=== PATIENT | male | born 2000 | race Two or more races ===

== ENCOUNTER 2020-03-20 21:20 | Emergency (ER) | payer BC, OTHER ==
[~2020-03-20] VITALS: Ht 180.3 cm; Wt 79.4 kg
[~2020-03-20 21:20] MED LIST: NKM
[2020-03-20 21:30] VITALS: BP 133/74
--- NOTE | 2020-03-20 21:30 | NUR ---
ED Nurse Note: Pt walked into ED from home for c/o R shoulder injury after falling off his skateboard prior to arrival. Pt reports pain in R shoulder mostly with movement, decreased ROM noted. Abrasion to R shoulder also seen. Pt is aaox4, breathing is normal and unlabored, NAD. Pt is ambulatory with steady gait.
--- NOTE | 2020-03-20 21:45 | Emergency Room Report ---
History of Present Illness General Chief Complaint: Upper Extremity Injury Source: Patient Present Illness HPI Patient is a 20-year-old male presents after increased right-sided shoulder pain. Patient reports having increased pain with movement. Denies any pain at rest. Reports having recent injury to his shoulder while skateboarding. He reports falling onto the right shoulder. He states he is right-hand dominant. Denies any other locations of injury. Denies any other symptoms other than pain with movement. Denies any fever. No prior medical history. Allergies: Coded Allergies: No Known Allergies (Unverified , 08/15/13) COVID-19 Screening Contact w/high risk pt: No Recent Travel to affected area: No Experienced COVID-19 symptoms?: No COVID-19 Testing performed COMPLAINT OPERATOR: No Patient History Reviewed Nursing Documentation: PMH: Agreed; PSxH: Agreed Nursing Documentation-PMH Past Medical History: No Stated History Review of Systems Constitutional: Reports: no symptoms Eye: Reports: no symptoms ENT: Reports: no symptoms Respiratory: Reports: no symptoms Gastrointestinal: Reports: no symptoms Genitourinary: Reports: no symptoms Skin: Reports: no symptoms Psychiatric: Reports: no symptoms Neurological: Reports: no symptoms Endocrine: Reports: no symptoms Hematologic/Lymphatic: Reports: no symptoms Allergic: Reports: no symptoms All Other Systems: negative except mentioned in HPI Physical Exam Vital Signs Date Time Temp Pulse Resp B/P (MAP) Pulse Ox O2 Delivery O2 Flow Rate FiO2 03/20/20 21:25 99.0 78 19 133/74 (93) 100 Room Air General Appearance: well appearing, no apparent distress, alert, GCS 15, non- toxic Head: normocephalic, atraumatic ENT: hearing grossly normal, normal voice Neck: full range of motion, supple Respiratory: no respiratory distress, speaking full sentences Cardiovascular #1: normal inspection, regular rate, rhythm Musculoskeletal: normal inspection, decreased range of mation Neurologic: alert, motor strength/tone normal, property and supply officer III-XII nml as tested, oriented x3, normal gait Psychiatric: normal inspection, mood/affect normal Skin: normal color, abrasions - Abrasion to the lateral aspect of the right shoulder Medical Decision Making Diagnostic Impression: Primary Impression: Shoulder contusion Additional Impression: Abrasion ER Course Patient presented for right shoulder pain. Differential diagnosis include was not limited to dislocation, contusion, rotator cuff tear, fracture, AC separation among others. X-ray imaging was ordered to patient's recent trauma. He does not appear to have any evidence of dislocation has painless resting with his right upper extremity. Has normal hand function. There is noted to be abrasion over the right deltoid. Patient does not have any step-offs or tenderness to the clavicle and AC joint is nontender. X-ray imaging showed no evidence of acute fracture. Patient was placed in a sling. Patient be discharged home. He was advised to follow-up with primary care physician for recheck. He is advised to ice the area and to return if any worsening or any concerns. Patient has a benign exam and does not appear to require any imaging or laboratory testing at this time.The patient is advised to follow up with primary care doctor. He was advised to take his arm out of the sling several times a day to preserve range of motion.Patient is advised to return if any worsening condition or if any changes in status that are concerning. This report is dictated with [employer] ammonia box tender software which may occasionally lead to discrepancies related to use of this software. Last Vital Signs Date Time Temp Pulse Resp B/P (MAP) Pulse Ox O2 Delivery O2 Flow Rate FiO2 03/20/20 21:30 99.0 78 19 133/74 100 Room Air Status: improved Disposition: HOME, SELF-CARE Condition: Stable Scripts Acetaminophen (Acetaminophen) 500 Mg Tablet 500 MG ORAL Q4H for PAIN, #30 TAB Prov: Randall Huang MD 03/20/20 Randall Huang MD Mar 20, 2020 21:45
[2020-03-20] MEDS ORDERED: ACETAMINOPHEN500 M5 ORAL (21:47)
--- NOTE | 2020-03-20 21:50 | NUR ---
ED Nurse Note: R arm placed in sling.
[2020-03-20 22:00] VITALS: BP 125/75
--- NOTE | 2020-03-20 22:00 | NUR ---
ER DISCHARGE NOTE: Patient is cleared to be discharged per ERMD, pt is aox4, on room air, with stable vital signs. pt was given dc instructions, pt was able to verbalize understanding, pt id band removed without complications. pt is able to ambulate with steady gait. pt took all belongings.
--- NOTE | 2020-03-21 14:37 | Diagnostic Imaging Report ---
Indication: Pain status post injury Technique: 3 views of the right shoulder Comparison: None Findings: Bone mineralization within normal limits. No acute fractures identified. Glenohumeral and acromioclavicular joints are maintained, without evidence of dislocation. Imaged portions of the right lung are clear. There is no radiopaque foreign body. Impression: No evidence of acute fracture or dislocation.
== END 2020-03-20 22:00 | disposition home or self-care (01) ==
LOC: EMR 21:45
DX: S40.011A Contusion of right shoulder, initial encounter (principal); Y93.51 Activity, roller skating (inline) and skateboarding
CPT/HCPCS: 99283